=== PATIENT | male | born 1990 | race Caucasian/White ===

== ENCOUNTER 2020-01-30 10:16 | Day surgery (SDC) | payer OTHER ==
[~2020-01-30] VITALS: Ht 180.3 cm; Wt 133.8 kg
[2020-01-30] MEDS ORDERED: MIDAZOLAM 2 MG/2 ML VIAL ONE ×2 (11:39)
[2020-01-30] MEDS ORDERED: fentaNYL citrate 0.05 MG/ML VIAL ONE (11:39)
[2020-01-30] MEDS ORDERED: LIDOCAINE 2% 100 MG/5 ML UJET TP ONE (11:40)
[2020-01-30] MEDS: MIDAZOLAM 2 MG/2 ML VIAL IVP ONE (11:55)
[2020-01-30] MEDS: LIDOCAINE 2% 100 MG/5 ML UJET TP ONE (11:55)
[2020-01-30] MEDS: fentaNYL citrate 0.05 MG/ML VIAL IVP ONE (11:55)
== END 2020-01-30 13:05 | disposition home or self-care (01) ==
LOC: MDS 10:16 → MMU 11:10 → MDS 13:05
PROVIDERS: ATTEND Internal Medicine Gastroenterology
DX: R19.5 Other fecal abnormalities (principal); K62.1 Rectal polyp; R94.5 Abnormal results of liver function studies; B96.81 Helicobacter pylori [H. pylori] as the cause of diseases classified elsewhere; I10 Essential (primary) hypertension; Z79.899 Other long term (current) drug therapy
CPT/HCPCS: J2250; J3010